=== PATIENT | male | born 1965 | race Caucasian/White ===

== ENCOUNTER → 2016-03-29 | Outpatient (CLI) | payer MEDICARE, OTHER ==
[~2016-03-29] MED LIST: ALLO300T2 PO; CETI10 PO; CONTOUR2 XX; INDO50CA PO; METO-309 PO; SERO300T PO
[2016-03-29 11:56] LABS: AUTOMATED NEUTROPHIL # 4.7 TH/MM3 (1.8-7.7); BASOPHIL # 0.1 TH/MM3 (0-0.2); BASOPHIL % 1.2 % (0.0-2.0); EOSINOPHIL # 0.2 TH/MM3 (0-0.4); EOSINOPHIL % 2.6 % (0.0-4.0); HEMO FLAGS DIFF FINAL; LYMPH % 24.2 % (9.0-44.0); LYMPHOCYTE # 1.7 TH/MM3 (1.0-4.8); MEAN CELL VOLUME 91.3 FL (80.0-100.0); MEAN CORPUSCULAR HEMOGLOBIN 31.4 PG (27.0-34.0); MEAN CORPUSCULAR HGB CONC 34.4 % (32.0-36.0); MONO % 5.2 % (0.0-8.0); NEUT % 66.8 % (16.0-70.0); PLATELET COUNT 257 TH/MM3 (150-450); RED CELL DISTRIBUTION WIDTH 13.8 % (11.6-17.2)
[2016-03-29 12:27] LABS: ALKALINE PHOSPHATASE 107 U/L (45-117); ALT (GPT) 19 U/L (12-78); ANION GAP 10 MEQ/L (5-15); AST (GOT) 14 U/L (15-37); BICARBONATE 23.9 MEQ/L (21.0-32.0); BLOOD UREA NITROGEN 29 MG/DL (7-18); CHLORIDE 107 MEQ/L (98-107); GLOMERULAR FILTRATION RATE 57 ML/MIN (>89); GLUCOSE,FASTING 169 MG/DL (74-99); HDL CHOLESTEROL 32.9 MG/DL (40.0-60.0); LDL CHOLESTEROL 112 MG/DL (0-99); POTASSIUM 4.1 MEQ/L (3.5-5.1); SODIUM (NA) 141 MEQ/L (136-145); TOTAL BILIRUBIN ADULT 0.7 MG/DL (0.2-1.0); URIC ACID 6.9 MG/DL (2.6-7.2)
[2016-03-29 15:41] LABS: HEMOGLOBIN A1a 0.9 %; HEMOGLOBIN Ao 83.6 %; HEMOGLOBIN F 1.1 %; HEMOGLOBIN LA1C 2.4 %; HEMOGLOBIN P3 4.1 %
== END ==
LOC: CLAB 11:36
PROVIDERS: ATTEND Family Medicine
DX: M10.9 Gout, unspecified (principal); M1A.9XX1 Chronic gout, unspecified, with tophus (tophi); E66.9 Obesity, unspecified; I10 Essential (primary) hypertension; E11.9 Type 2 diabetes mellitus without complications; N28.9 Disorder of kidney and ureter, unspecified
CPT/HCPCS: 36415; 80053; 80061; 83036; 84443; 84550; 85025